=== PATIENT | male | born 1980 | race Caucasian/White ===

== ENCOUNTER 2020-12-10 09:48 | Outpatient (REF) | payer OTHER, SELFPAY ==
[2020-12-10 14:59] LABS: ALT 44 U/L (16-63); AST 22 U/L (15-37); Albumin 4.2 g/dL (3.4-5.0); Alkaline Phosphatase 66 U/L (46-116); Anion Gap 10.4 mmol/L (3-11); BUN 13 mg/dL (7-18); Bilirubin, Total 0.4 mg/dL (0.2-1.0); CO2 26.6 mmol/L (21.0-32.0); CREATININE 0.9 mg/dL (0.70-1.30); Calcium 9.5 mg/dL (8.5-10.1); Calculated LDL 140 mg/dL (<100); Chloride 103 mmol/L (98-107); Cholesterol 214 mg/dL (<200); Glucose 91 mg/dL (74-106); HDL Cholesterol 58 mg/dL (40-60); Potassium 4.7 mmol/L (3.5-5.1); Sodium 140 mmol/L (136-145); Total Protein 7.9 g/dL (6.4-8.2); Triglyceride 81 mg/dL (<150)
== END 2020-12-10 09:49 | disposition home or self-care (01) ==
LOC: NCHCN 09:48
PROVIDERS: PCP Physician Assistant; Referring Provider Physician Assistant; Visit Provider Physician Assistant
DX: Z00.00 Encounter for general adult medical examination without abnormal findings (principal)
CPT/HCPCS: 80053; 80061

== ENCOUNTER 2021-01-01 15:41 | Outpatient (CLI) | payer OTHER, SELFPAY ==
--- NOTE | 2021-01-01 16:15 | DI.RAD_ITS ---
Exam(s) XR ANKLE RT COMPLETE EXAM: XR ANKLE RT COMPLETE CLINICAL HISTORY: right ankle injury S99.911A TECHNIQUE: COMPARISON: No exams were available for comparison FINDINGS: Four views were obtained. The ankle mortise is well maintained. There is no evidence of acute fract ure or dislocation. IMPRESSION: RADIATION DOSE DELIVERED: Total DLP
--- NOTE | 2021-01-01 17:16 | DI.VRAD_ITS ---
PROCEDURE INFORMATION: Exam: XR Right Ankle Exam date and time: 01/01/2021 4:22 PM Age: 40 years old Clinical indication: Pain; Patient HX: Right ankle injury TECHNIQUE: Imaging protocol: XR Right ankle. Views: 3 or more views. COMPARISON: No relevant prior studies available. FINDINGS: Bones/joints: There is no evidence of acute fracture. There is no evidence of joint malalignment or dislocation. No joint effusion. Soft tissues: Mild lateral ankle soft tissue swelling. IMPRESSION: Mild lateral ankle soft tissue swelling without evidence of fracture, consistent with lateral ankle sprain. Recommend clinical correlation to point tenderness in this area. Dictated and Authenticated by: Martin Wood MD. Ordering:SCOOTER Shen MD
== END 2021-01-01 16:01 ==
PROVIDERS: PCP Physician Assistant; Visit Provider Physician Assistant
DX: S93.401A Sprain of unspecified ligament of right ankle, initial encounter
CPT/HCPCS: 73610

== ENCOUNTER 2022-01-07 09:48 | Outpatient (REF) | payer OTHER, SELFPAY ==
[2022-01-07 15:36] LABS: Anion Gap 10.2 mmol/L (3-11); BUN 16 mg/dL (7-18); CO2 25.8 mmol/L (21.0-32.0); CREATININE 0.9 mg/dL (0.70-1.30); Calcium 9.7 mg/dL (8.5-10.1); Calculated LDL 131 mg/dL (<100); Chloride 102 mmol/L (98-107); Cholesterol 214 mg/dL (<200); Estimated GFR 109.36 (mL/min/1.73m2); Glucose 97 mg/dL (74-106); HDL Cholesterol 74 mg/dL (40-60); Potassium 4.7 mmol/L (3.5-5.1); Sodium 138 mmol/L (136-145); Triglyceride 47 mg/dL (<150)
== END 2022-01-07 09:49 | disposition home or self-care (01) ==
LOC: NCHCN 09:48
PROVIDERS: PCP Physician Assistant; Visit Provider Physician Assistant
DX: Z00.00 Encounter for general adult medical examination without abnormal findings (principal)
CPT/HCPCS: 80048; 80061

== ENCOUNTER 2023-02-17 11:23 | Outpatient (REF) | payer OTHER, SELFPAY ==
[2023-02-17 15:53] LABS: Anion Gap 8.4 mmol/L (3-11); BUN 17 mg/dL (7-18); CO2 27.6 mmol/L (21.0-32.0); CREATININE 0.9 mg/dL (0.70-1.30); Calcium 9.6 mg/dL (8.5-10.1); Calculated LDL 125 mg/dL (<100); Chloride 101 mmol/L (98-107); Cholesterol 204 mg/dL (<200); Estimated GFR 108.68 (mL/min/1.73m2); Glucose 98 mg/dL (74-106); HDL Cholesterol 64 mg/dL (40-60); Potassium 4.5 mmol/L (3.5-5.1); Sodium 137 mmol/L (136-145); Triglyceride 76 mg/dL (<150)
== END 2023-02-17 11:24 | disposition home or self-care (01) ==
LOC: NCHCN 11:23
PROVIDERS: PCP Physician Assistant; Visit Provider Physician Assistant
DX: Z00.00 Encounter for general adult medical examination without abnormal findings (principal)
CPT/HCPCS: 80048; 80061

== ENCOUNTER 2024-02-23 09:40 | Outpatient (REF) | payer OTHER, SELFPAY ==
[2024-02-23 16:08] LABS: BUN 15 mg/dL (7-18); CO2 29.4 mmol/L (21.0-32.0); CREATININE 1.2 mg/dL (0.70-1.30); Calcium 9.7 mg/dL (8.5-10.1); Calculated LDL 111 mg/dL (<100); Cholesterol 195 mg/dL (<200); Estimated GFR 76.48 (mL/min/1.73m2); Glucose 90 mg/dL (74-106); HDL Cholesterol 66 mg/dL (40-60); Triglyceride 90 mg/dL (<150)
[2024-02-23 16:11] LABS: Anion Gap 6.6 mmol/L (3-11); Chloride 103 mmol/L (98-107); Sodium 139 mmol/L (136-145)
== END 2024-02-23 09:41 | disposition home or self-care (01) ==
LOC: NCHCN 09:40
PROVIDERS: PCP Physician Assistant; Visit Provider Physician Assistant
DX: Z00.00 Encounter for general adult medical examination without abnormal findings (principal)
CPT/HCPCS: 80048; 80061

== ENCOUNTER 2024-06-19 09:53 | Inpatient (IN) | payer OTHER, SELFPAY ==
[2024-06-19] VITALS (39 sets, daily range): BP systolic 128–202; BP diastolic 73–108; PULSE 91–114; RESP 12–24; TEMP 36.2–37; O2SAT 96–99
--- NOTE | 2024-06-19 09:45 | DI.CT_ITS ---
Exam(s) CT ABDOMEN PELVIS W EXAM: CT ABDOMEN PELVIS W CLINICAL HISTORY: Abdominal pain TECHNIQUE: Imaging Protocol: Axial computed tomography images with coronal and sagittal reformatted images were created and reviewed. CONTRAST MATERIAL: Intravenous: Omnipaque 350 Contrast volume:100 mL Oral: No COMPARISON: No exams were available for comparison FINDINGS: ABDOMEN: Lung Bases: No acute abnormality. Liver: Normal density. No measurable mass. Portal, Superior Mesenteric, and Splenic Veins: Unremarkable. Gallbladder and Biliary Tract: No radiodense calculus or dilation. Pancreas: Normal density, no abnormal calcifications or inflammatory process. Spleen: Normal. Adrenals: No masses seen. Kidneys: Normal size, contour and axis. No radiodense stones or obstructive uropathy. There are simpl e cysts seen on the right kidney. No follow-up is recommended. Abdominal Aorta: Abdominal portion non-dilated. Mild atherosclerotic calcification is present. Bowel: There is bowel wall thickening seen in the mid sigmoid colon. Stranding is seen in the surrou nding soft tissues. There do appear to be a few tiny diverticula present. There is no evidence of b owel obstruction. There is no other bowel wall thickening present. Appendix is unremarkable. Peritoneal Cavity: No ascites, collection or mesenteric inflammatory response. There is a tiny focus of air adjacent to the bowel wall thickening (series 12, image 184). This may represent a diverticu lum or a small focus of extraluminal air.No other evidence to suggest free air is seen in the abdomen or pelvis. Lymph Nodes: Within normal limits. Bones: Within normal limits for the patient's age. Soft Tissues: There are small bilateral fat containing inguinal hernias. PELVIS: Bladder: Symmetric distention, no gross wall thickening. Reproductive Organs: Unremarkable as visualized. Lymph Nodes: Within normal limits. Bones: Within normal limits for the patient's age. IMPRESSION: 1. Wall thickening seen in the mid sigmoid colon with stranding in the surrounding soft tissues. The re are diverticula seen in areas of the colon. This may represent acute diverticulitis. A follow-up examination to resolution is recommended to exclude underlying pathology. 2. Tiny focus of air adjacent to the infarct involved sigmoid colon which may represent a diverticulu m. Small focus of extraluminal air cannot be entirely excluded. No other evidence to suggest free a ir is seen in the abdomen or pelvis. RADIATION DOSE DELIVERED: 701.3mGy.cm Total DLP DATA REPOSITORY: All CT scans at this facility are submitted to the National Radiology Data Registry (NRDR) Dose Index Registry (DIR) with the [employer] (ACR). RADIATION OPTIMIZATION: All CT scans at this facility use at least one of these dose optimization te chniques: automated exposure control; mA and/or kV adjustment per patient size (includes targeted exa ms where dose is matched to clinical indication); or iterative reconstruction.
--- NOTE | 2024-06-19 09:54 | ED.GENADUL_ITS ---
Discharge Plan Disposition Patient Disposition: Admit to [facility] Discharge Details Clinical Impression: Colon wall thickening, Abdominal pain Admit Date/Time: 06/19/24 15:08 Admit Provider: Louis Tolbert Attending Provider: Louis Tolbert Primary Care Provider: Dallas Kate ED Provider: Martin Montes HPI General Date/Time Provider Initiated Documentation: 06/19/24 09:54 . HPI Narrative: MDM This is an overall well-appearing mildly tachycardic but normothermic 43-year-old male elevated BMI and lower abdominal pain concerning for possibility of appendicitis versus diverticulitis for which patient well undergo CT scan with IV contrast. No pain on proportion to suggest necrotizing soft tissue infection. In the absence of lateralizing pain and history of nephrolithiasis my suspicion is low for ureterolithiasis. Patient is not hypotensive nor an extremis to suggest ruptured AAA. No rash to abdomen to suggest zoster. No chest pain to suggest ACS so did not obtain ECG. No epigastric pain to suggest pancreatitis so I did not send a lipase. No dysuria nor frequency to suggest UTI so did not send urinalysis. No right upper quadrant tenderness to suggest acute cholecystitis so do not feel the patient requires right upper quadrant ultrasound. Patient is tachycardic so we will treat with 1 L of IV fluids. Has not been nauseous nor vomiting to suggest increased risk for esophageal rupture. In the absence of vomiting and past surgical history my suspicion for small bowel obstruction is low. 12:45 PM I was in touch with Dr. Tolbert from the hospitalist service who graciously agreed to accept the patient for hospitalization. I ordered blood cultures and lactate. Lactate was reassuring and not consistent with severe sepsis or septic shock. 4:[address] Munoz about the patient's hospitalization. HPI This is a 43-year-old male with history of hypertension hyperlipidemia arrived emergency department via private vehicle in the setting of abdominal pain. Patient reports that 2 days ago he woke up with abdominal pain. He says that he has not been nauseous nor vomiting. He feels constipated and has not had a bowel movement that has been significant in the past 3 days. He had a small bowel movement this morning after he had tried some suppositories and docusate. He has not been passing gas. He has no history of ureterolithiasis. He has not been nauseous nor vomiting. He has never had a colonoscopy and has had no past abdominal surgical history. His pain is primarily in the lower portion of his abdomen. He denies dysuria and frequency and has never had a urinary tract infection. Exam General: Well-appearing in no acute distress speaking in complete sentences. Head: Normocephalic, atraumatic. Eye: Extraocular eye movements intact. No conjunctival injection. No scleral icterus. Ear, nose, mouth, throat: Grossly normal inspection. Normal voice, handling secretions normally. Neck: Trachea midline. Cardiovascular: Well-perfused distal extremities. Rapid regular rate Respiratory: Nonlabored respiration. Clear lungs bilaterally. Gastrointestinal: Nondistended abdomen. Soft. Minimal bilateral lower quadrant tenderness. No rebound. No guarding. Musculoskeletal: No edema. Moving all 4 extremities spontaneously. Skin: Normal for age and race, grossly normal temperature and turgor. No acute rash. Neurologic: Alert and appropriate, no apparent acute deficits. Psychiatric: Mood and manner are appropriate. Grooming and personal hygiene are appropriate. Related Data Home Medications ?Medication ?Instructions ?Recorded ?Confirmed albuterol sulfate 90 mcg/actuation 2 inh inhalation 02/10/15 12/21/23 aerosol inhaler (Proventil HFA) atorvastatin 20 mg tablet 20 mg PO DAILY 01/01/21 06/19/24 lisinopril 20 mg tablet 20 mg PO DAILY 07/24/23 06/19/24 Allergies Allergy/AdvReac Type Severity Reaction Status Date / Time doxycycline AdvReac Severe diarrhea Verified 06/19/24 09:10 horses Allergy Asthma Uncoded 06/19/24 09:10 Medical Decision Making Quality:SDOH Health Related Social Needs: No Data to Display PFSH All Active Problems (Updated 06/19/24 @ 15:11 by MICHAEL AGUDELO) HLD (hyperlipidemia) (Acute) HTN (hypertension) (Chronic) Acute diverticulitis (Acute) Sepsis (Acute) Abdominal pain (Acute) Colon wall thickening (Acute) Sebaceous cyst (Acute) Social History Smoking/Tobacco Use Status: Never Smoking risk assessment performed?: Yes Drug use: Never Substance use type: does not use
[2024-06-19] MEDS: Normal Saline - Diluent 50 ML VIAL IJ (10:28)
[2024-06-19] MEDS: Omnipaque 350 MG/ML 100 ML BTL IJ (10:30)
[2024-06-19] MEDS: Normal Saline 1,000 ML 1000 ML IV (10:45)
[2024-06-19 10:47] LABS: Abs Immature Grans 0.06 10^3/uL (0.0-0.06); Absolute Basophil Count 0.04 10^3/uL (0.0-0.2); Absolute Lymphocyte Count 1.36 10^3/uL (1.2-3.4); Basophils % 0.3 %; Eosinophils % 0.9 %; HCT 41.7 % (40.0-50.0); HGB 14.4 g/dL (13.5-17.5); Immature Grans % 0.4 %; Lymphocytes % 9.1 %; MCH 31.5 pg (27.0-33.0); MCHC 34.5 % (32.0-36.0); MCV 91 fL (80-95); MPV 9.6 fL (8.0-11.0); Monocytes % 7.4 %; Neutrophils % 81.9 %; Platelet Count 371 10^3/uL (130-400); RBC 4.57 10^6/uL (4.36-5.78); RDW 11.6 % (11.8-14.1); WBC 14.93 10^3/uL (4.4-10.8)
[2024-06-19 10:48] LABS: Absolute Eosinophil Count 0.13 10^3/uL (0.0-0.7); Absolute Neutrophil Count 12.23 10^3/uL (1.2-6.7)
[2024-06-19] MEDS: fentaNYL 100 MCG/2 ML VIAL 75 MCG IVP (11:03)
[2024-06-19 11:08] LABS: ALT 36 U/L (16-63); AST 19 U/L (15-37); Albumin 3.8 g/dL (3.4-5.0); Alkaline Phosphatase 86 U/L (46-116); Anion Gap 8.4 mmol/L (3-11); BUN 10 mg/dL (7-18); Bilirubin, Total 0.7 mg/dL (0.2-1.0); CO2 28.6 mmol/L (21.0-32.0); Calcium 9.7 mg/dL (8.5-10.1); Chloride 99 mmol/L (98-107); Estimated GFR 95.18 (mL/min/1.73m2); Glucose 113 mg/dL (74-106); Potassium 4.4 mmol/L (3.5-5.1); Sodium 136 mmol/L (136-145); Total Protein 8.2 g/dL (6.4-8.2)
[2024-06-19] MEDS: MORPHine IR 15 MG TAB PO ×2 (12:05→19:48)
[2024-06-19] MEDS: Ketorolac 15 MG/ML VIAL IVP (12:05)
--- NOTE | 2024-06-19 12:45 | HPE_ITS ---
Date of service: 06/19/24 Time of Service: 12:45 Assessment and Plan Assessment and plan (1) Sepsis: Status: Acute Assessment and plan: -Patient met criteria for sepsis on admission with initial heart rate of 114 bpm, white blood cell count of 14.9, and acute diverticulitis as noted on CT abdomen pelvis -Patient was started on Zosyn in the emergency department, will continue -Patient is able to tolerate p.o. intake he will be transitioned to p.o. Cipro and Flagyl -Lactate was ordered in the emergency department, currently pending -Patient's status post 1 L normal saline (2) Acute diverticulitis: Status: Acute Assessment and plan: - Source of infection as noted above (3) HTN (hypertension): Status: Chronic Assessment and plan: - Continue home lisinopril 20 mg daily (4) HLD (hyperlipidemia): Status: Acute Assessment and plan: - Continue home atorvastatin 20 mg daily History of Present Illness History of Present Illness Chief Complaint: abdominal pain Narrative: 43-year-old male with a past medical history of hypertension, hyperlipidemia presented to the emergency department complaints of abdominal pain. Patient states that 2 days ago he woke up with abdominal pain has been persistent since that time though he denies any nausea or vomiting. He also states that he felt constipated has not had a bowel movement over the last 3 days we did have one earlier this morning after suppositories. Patient is around colonoscopy and does not have any history of abdominal surgeries, and he denies any fevers, lightheadedness, dizziness, chest pain or shortness of breath. In the emergency department the patient was noted as having heart rate 114, with otherwise normal vital signs. His abdominal exam was noted as being diffusely tender which resulted and CT abdomen pelvis that showed wall thickening in the mid sigmoid colon with stranding of the surrounding soft tissue and may represent acute diverticulitis. This finding was also in combination with elevated white blood cell count of 14.9. While in the emergency department patient was experiencing pain and and was given fentanyl and ultimately 50 mg of p.o. morphine that did not improve his abdominal discomfort. He was also given IV Zosyn. At which time emergency room physician paged hospitalist for admission for patient with sepsis secondary to acute diverticulitis Review of Systems All systems reviewed & are unremarkable except as noted in HPI and below PFSH All Active Problems (Updated 06/19/24 @ 15:11 by MICHAEL AGUDELO) HLD (hyperlipidemia) (Acute) HTN (hypertension) (Chronic) Acute diverticulitis (Acute) Sepsis (Acute) Abdominal pain (Acute) Colon wall thickening (Acute) Sebaceous cyst (Acute) Social History Smoking/Tobacco Use Status: Never Smoking risk assessment performed?: Yes Drug use: Never Substance use type: does not use Meds Allergies and Home Medications Allergies Allergy/AdvReac Type Severity Reaction Status Date / Time doxycycline AdvReac Severe diarrhea Verified 06/19/24 09:10 horses Allergy Asthma Uncoded 06/19/24 09:10 Home Medications ?Medication ?Instructions ?Recorded ?Confirmed ?Type albuterol sulfate 90 mcg/actuation 2 inh inhalation 02/10/15 12/21/23 History aerosol inhaler (Proventil HFA) atorvastatin 20 mg tablet 20 mg PO DAILY 01/01/21 06/19/24 History lisinopril 20 mg tablet 20 mg PO DAILY 07/24/23 06/19/24 History Exam Narrative Exam Narrative: Well-appearing gentleman laying in bed in no acute distress, ANO x 4, heart regular rhythm, lungs clear to auscultation bilaterally, abdomen soft, with mild bilateral lower quadrant tenderness to deep palpation without guarding or rebounding Results Labs 06/19/24 10:40 06/19/24 10:40 Labs: Laboratory Results - last 24 hr 06/19/24 10:40 WBC 14.93 H RBC 4.57 Hgb 14.4 Hct 41.7 MCV 91 MCH 31.5 MCHC 34.5 RDW 11.6 L Plt Count 371 MPV 9.6 Immature Gran % 0.4 Neutrophils % 81.9 Lymphocytes % 9.1 Monocytes % 7.4 Eosinophils % 0.9 Basophils % 0.3 Nucleated RBC % 0.0 Absolute Neutrophils 12.23 H Absolute Lymphocytes 1.36 Absolute Monocytes 1.10 H Absolute Eosinophils 0.13 Absolute Basophils 0.04 Sodium 136 Potassium 4.4 Chloride 99 Carbon Dioxide 28.6 Anion Gap 8.4 BUN 10 Creatinine 1.0 Est GFR (CKD-EPI 2020) 95.18 Glucose 113 H Calcium 9.7 Total Bilirubin 0.7 AST 19 ALT 36 Alkaline Phosphatase 86 Total Protein 8.2 Albumin 3.8 Last Vital Signs Temp 98.5 F 06/19/24 11:30 Pulse 99 H 06/19/24 12:20 Resp 14 06/19/24 12:20 BP 158/96 H 06/19/24 11:01 Pulse Ox 98 06/19/24 12:20 Time Spent Time spent with Patient: >75 minutes Time was spent: preparing to see the patient(eg.review tests), obtaining and/or reviewing separately otained hiistory, ordering medications,tests, procedures, referring, communicating with other health vision care associate, indepentently interpreting results, counseling the patient and care coordination
[2024-06-19 13:44] LABS: Lactate 1.3 mmol/L (<or=2.0)
--- NOTE | 2024-06-19 15:05 | W.SURGCON ---
Date of service: 06/19/24 Time of Service: 15:05 Assessment and Plan Assessment and plan (1) Acute diverticulitis: Status: Acute Assessment and plan: 43-year-old man with sigmoid inflammation, most?likely secondary to acute diverticulitis. A colon malignancy could present this way and does need to be ruled out in the short-term. It is highly recommended that 6 to 8 weeks after this episode he undergoes colonoscopy to evaluate this region. The differential diagnosis does include other things such as IBD and appendagitis though these are less likely. There are not many other possible etiologies. Recommendation: Laxatives Colonoscopy 6 to 8 weeks after discharge - he should follow-up with us in the office to schedule. History of Present Illness Narrative: 43-year-old man has never had a colonoscopy before. Presents with acute abdominal pain and a segment of sigmoid inflammation, likely related to sigmoid diverticulitis. He is being admitted to the hospitalist service for medical management. At the bedside he endorses cramping abdominal discomfort for about 2 to 3 days. He thinks maybe he has had it a couple of times before but is not sure. He feels like he just needs to go to the bathroom and it would get better. He has not been able to have a bowel movement for the same timeframe. PFSH All Active Problems (Updated 06/19/24 @ 15:11 by MICHAEL AGUDELO) HLD (hyperlipidemia) (Acute) HTN (hypertension) (Chronic) Acute diverticulitis (Acute) Sepsis (Acute) Abdominal pain (Acute) Colon wall thickening (Acute) Sebaceous cyst (Acute) Social History Smoking/Tobacco Use Status: Never Smoking risk assessment performed?: Yes Drug use: Never Substance use type: does not use Housing: house Exam Narrative Exam Narrative: Gen: Non-toxic, comfortable and interactive Neuro: Alert and oriented x3 Psych: Good mood and affect. Good insight and understanding into condition. Chest: Non-labored breathing, no wheezing, no visible shortness of breath. Heart: Regular Abdomen: Soft, nondistended, focal left lower quadrant discomfort to palpation. No peritoneal signs. Results Last Vital Signs Temp 98.5 F 06/19/24 11:30 Pulse 95 H 06/19/24 14:40 Resp 19 06/19/24 14:40 BP 135/81 06/19/24 14:40 Pulse Ox 98 06/19/24 14:40 Labs 06/20/24 05:43 06/20/24 05:43 Labs: Laboratory Results - last 24 hr 06/19/24 06/19/24 10:40 13:40 WBC 14.93 H RBC 4.57 Hgb 14.4 Hct 41.7 MCV 91 MCH 31.5 MCHC 34.5 RDW 11.6 L Plt Count 371 MPV 9.6 Immature Gran % 0.4 Neutrophils % 81.9 Lymphocytes % 9.1 Monocytes % 7.4 Eosinophils % 0.9 Basophils % 0.3 Nucleated RBC % 0.0 Absolute Neutrophils 12.23 H Absolute Lymphocytes 1.36 Absolute Monocytes 1.10 H Absolute Eosinophils 0.13 Absolute Basophils 0.04 VBG Lactate 1.3 Sodium 136 Potassium 4.4 Chloride 99 Carbon Dioxide 28.6 Anion Gap 8.4 BUN 10 Creatinine 1.0 Est GFR (CKD-EPI 2020) 95.18 Glucose 113 H Calcium 9.7 Total Bilirubin 0.7 AST 19 ALT 36 Alkaline Phosphatase 86 Total Protein 8.2 Albumin 3.8
--- NOTE | 2024-06-19 15:30 | W.PC.ACHO ---
Registration Status: Primary Language: Preferred Language: ED Information & Data Chief Complaint Abd Prob 06/19/24 12:36 Chief Complaint Abd Prob 06/19/24 10:06 Triage Note Lower quad to mid ABD pain 06/19/24 10:06 started late Wednesday firm and distended, denies nausea has chills, has increased water intake and took Rectal supp with no result, decreased urine OP Most Recent Vital Signs Temperature 36.9 C 06/19/24 11:30 Temperature Source Oral 06/19/24 11:30 Pulse 95 H 06/19/24 14:40 Pulse 95 H 06/19/24 14:30 Respiratory Rate 19 06/19/24 14:40 Blood Pressure 135/81 06/19/24 14:40 Blood Pressure Mean 98 06/19/24 14:16 Blood Pressure Position Sitting 06/19/24 12:38 Pulse Oximetry 98 06/19/24 14:40 Oxygen Delivery Method Room Air 06/19/24 12:38 Oxygen Flow Rate 0 06/19/24 10:06 Pain Level 8 06/19/24 12:05 Allergies doxycycline Adverse Reaction (Severe, Verified 06/19/24 09:10) diarrhea horses Allergy (Uncoded 06/19/24 09:10) Asthma asthma goes crazy IV IV Catheter Type [Left Saline Lock Antecubital] IV Catheter Gauge [Left 18 Antecubital] Diet Orders Category Date Time Status Nothing Per Oral [DIET] Nutrition 06/19/24 Dinner Active Diagnostics 06/19/24 06/19/24 Range/Units 13:40 10:40 WBC 14.93 H (4.4-10.8) 10^3/uL RBC 4.57 (4.36-5.78) 10^6/uL Hgb 14.4 (13.5-17.5) g/dL Hct 41.7 (40.0-50.0) % MCV 91 (80-95) fL MCH 31.5 (27.0-33.0) pg MCHC 34.5 (32.0-36.0) % RDW 11.6 L (11.8-14.1) % Plt Count 371 (130-400) 10^3/uL MPV 9.6 (8.0-11.0) fL Immature Gran % 0.4 % Neutrophils % 81.9 % Lymphocytes % 9.1 % Monocytes % 7.4 % Eosinophils % 0.9 % Basophils % 0.3 % Nucleated RBC % 0.0 (0.0-0.3) % Absolute Neutrophils 12.23 H (1.2-6.7) 10^3/uL Absolute Lymphocytes 1.36 (1.2-3.4) 10^3/uL Absolute Monocytes 1.10 H (0.1-0.8) 10^3/uL Absolute Eosinophils 0.13 (0.0-0.7) 10^3/uL Absolute Basophils 0.04 (0.0-0.2) 10^3/uL VBG Lactate 1.3 (<or=2.0) mmol/L Sodium 136 (136-145) mmol/L Potassium 4.4 (3.5-5.1) mmol/L Chloride 99 (98-107) mmol/L Carbon Dioxide 28.6 (21.0-32.0) mmol/L Anion Gap 8.4 (3-11) mmol/L BUN 10 (7-18) mg/dL Creatinine 1.0 (0.70-1.30) mg/dL Est GFR (CKD-EPI 2020) 95.18 (mL/min/1.73m2) Glucose 113 H (74-106) mg/dL Calcium 9.7 (8.5-10.1) mg/dL Total Bilirubin 0.7 (0.2-1.0) mg/dL AST 19 (15-37) U/L ALT 36 (16-63) U/L Alkaline Phosphatase 86 (46-116) U/L Total Protein 8.2 (6.4-8.2) g/dL Albumin 3.8 (3.4-5.0) g/dL 06/19/24 13:40 Blood Culture - Pending Blood 06/19/24 13:05 Blood Culture - Pending Blood Intake and Output - 24 Hour Total 06/19/24 09:53 thru 06/19/24 10:06 Weight 113.398 kg Falls Risk Assessment History of Falls No History 06/19/24 14:39 Contributing Factors No Factors 06/19/24 14:39 Ambulatory Aids Independent 06/19/24 14:39 Tubes/Lines None 06/19/24 14:39 Gait Evaluation No gait disturbance 06/19/24 14:39 Cognition No cognitive impairment 03/31/25 14:39 Fall Total Score 0 06/19/24 14:39 Level of Risk Standard/Low Risk 06/19/24 14:39 Problems (Last Reviewed 07/28/23 @ 13:23 by MYRA Alexandre) HLD (hyperlipidemia) (Acute) HTN (hypertension) (Chronic) Acute diverticulitis (Acute) Sepsis (Acute) v v v v v v v v v Sending and/or Receiving Nurses: Please use comment section below to note any information pertinent to the patient hand-off not included above. Information / Comments: Pt arrived to floor a/o x 4. He is independent with ambulation. He is here foir treatment of abdominal pain and sepsis. Pt will have a surgical consult while on floor. Per ED report pt has been hypertensive since arriving to hospital. Possibly from pain level which has been high. Pt had fentanyl, morphine and keterolac which has seemed to decrease the pain. Pt was settled in by Coleen pham nurse. Report received from: [facility]
[2024-06-19] MEDS: Normal Saline 1,000 ML 125 ML IV (19:40)
[2024-06-19] MEDS: Normal Saline Flush 10 ML SYR IVP (19:40)
[2024-06-19] MEDS: Docusate Sodium 100 MG CAP PO (19:48)
[2024-06-19] MEDS: Polyethylene Glycol 3350 17 GM PACKET PO (19:51)
[2024-06-19] MEDS: Bisacodyl 10 MG SUPP PR (22:16)
[2024-06-20 02:10] VITALS: BP 134/77; PULSE 95; RESP 18; TEMP 36.9; O2SAT 96
[2024-06-20] MEDS: Normal Saline 1,000 ML 125 ML IV (05:12)
[2024-06-20 06:44] LABS: HCT 36.9 % (40.0-50.0); HGB 12.5 g/dL (13.5-17.5); MCH 31.3 pg (27.0-33.0); MCHC 33.9 % (32.0-36.0); MCV 93 fL (80-95); MPV 10.2 fL (8.0-11.0); Platelet Count 329 10^3/uL (130-400); RBC 3.99 10^6/uL (4.36-5.78); RDW 11.6 % (11.8-14.1); RDW-SD 39.5 fL; WBC 11.92 10^3/uL (4.4-10.8)
[2024-06-20 06:56] LABS: Anion Gap 9.1 mmol/L (3-11); BUN 9 mg/dL (7-18); CO2 28.9 mmol/L (21.0-32.0); Calcium 9.1 mg/dL (8.5-10.1); Chloride 101 mmol/L (98-107); Estimated GFR 95.18 (mL/min/1.73m2); Glucose 101 mg/dL (74-106); Magnesium 2.4 mg/dL; Potassium 4.2 mmol/L (3.5-5.1); Sodium 139 mmol/L (136-145)
[2024-06-20 08:01] VITALS: BP 137/87; PULSE 91; RESP 16; TEMP 36.9; O2SAT 98
[2024-06-20] MEDS: Lisinopril 20 MG TAB PO (08:18)
[2024-06-20] MEDS: Normal Saline Flush 10 ML SYR IVP (08:19)
[2024-06-20] MEDS: Atorvastatin 20 MG TAB PO (08:19)
--- NOTE | 2024-06-20 08:34 | PDOC.CMIN ---
Date of service: 06/20/24 Time of Service: 08:34 Care Management Initial Assmt Initial Assessment Reason for Hospitalization: sepsis Functional Status/Living Situation Town of Residence: [place] Resides with: Spouse (Renee) Employment Status: Employed ([employer]) Instrumental Activities of Daily Living (ADLs): Independent Medications Medication Management: No Issues/Barriers identified Physical Functioning/Mobility Assistive Device: none Advance Directives Advance Directives: Do you have an Advance Directive: N 06/19/24 09:56 AD On File at [facility]: N 02/10/15 15:06 Date Asked 06/19/24 06/19/24 09:56 AD Date Reviewed COLST On File at [facility] COLST Date Scanned Code Status Resuscitation Status Full Code Portal Pt does not currently have a portal and education provided: Yes Insurance Coverage/Financial Issues Insurance: P Care Team Visit Care Team Role Provider Type Dallas Kate Primary Care Provider NON-[facility] STAFF PHYSICIAN Martin Montes MD Emergency Provider [facility] STAFF PHYSICIAN Louis Tolbert MD Admit Provider [facility] STAFF PHYSICIAN Attending Provider Discharge Potential Discharge Needs: PCP F/U Appt and Surgical F/U Appt Anticipated Barriers to Discharge: None Identified Patient/Family Education Needs: Review discharge instructions, discuss Ask Me Three Transportation: Private vehicle Plan: Anticipate Fareed will be discharged home with no new services when medically cleared. He will follow up with his community providers and plan of care and transport with family. CM will follow and continue to assess for discharge needs. Social Determinants of Health Screening Social Determinants of Health last assessed: 06/20/24 Will the Patient Participate in the Screening?: Yes Do you worry about having a steady place to live?: no Problems where you live: no known problems In the past 12 months, have you had to go without electric, gas, oil or water in your home?: no Have you or anyone in your house had to go without enough food to eat?: no Has lack of transportation kept you from medical appointments or from doing things needed for daily living?: no Has anyone in your life made you feel unsafe or unsupported?: no How hard is it for you to pay for the very basics like food, housing, medical care, and heating? Would you say it is:: Not hard at all Do you want help finding or keeping work or a job?: I do not need or want help If for any reason you need help with day-to-day activities such as bathing, preparing meals, shopping, managing finances, etc., do you get the help you need?: I don?t need any help How often do you feel lonely or isolated from those around you?: Never Do you speak a language other than Bulgarian at home?: No Does the patient want assistance with any of the above?: No PFSH All Active Problems (Updated 06/19/24 @ 15:11 by MICHAEL GAUDELO) HLD (hyperlipidemia) (Acute) HTN (hypertension) (Chronic) Acute diverticulitis (Acute) Sepsis (Acute) Abdominal pain (Acute) Colon wall thickening (Acute) Sebaceous cyst (Acute) Social History Smoking/Tobacco Use Status: Never Smoking risk assessment performed?: Yes Drug use: Never Substance use type: does not use Housing: house
--- NOTE | 2024-06-20 09:24 | DSE_ITS ---
Date of service: 06/20/24 Time of Service: 09:24 DS: Diagnosis Discharge Diagnosis (1) Acute diverticulitis: Status: Acute Discharge Plan Disposition Patient Disposition: Home Condition: Good Discharge Details Reason For Visit: sepsis, diverticulitis Admit Date/Time: 06/19/24 15:08 Admit Provider: Louis Tolbert Attending Provider: Louis Tolbert Primary Care Provider: [facility] Hospital Course Hospital Course: Patient initially presented with abdominal pain that was thought to be secondary to acute diverticulitis and constipation. Patient was on Zosyn and was given aggressive bowel regimen and had significant improvement of his symptoms especially after having large bowel movement on the morning of 06/20/2024. Given the patient had significant improvement of his symptoms and had bowel movement it was determined that he was stable for discharge and will be sent home with an additional 5 days of ciprofloxacin and Flagyl. Home Meds and New Rx's Prescriptions: New ciprofloxacin HCl [Cipro] 500 mg tablet 500 mg PO BID Qty: 10 0RF metronidazole 500 mg tablet 500 mg PO BID Qty: 10 0RF Continued atorvastatin 20 mg tablet 20 mg PO DAILY lisinopril 20 mg tablet 20 mg PO DAILY albuterol sulfate [Proventil HFA] 1 PUFF HFA aerosol inhaler 2 inh inhalation fluticasone propion-salmeterol 100-50 mcg/dose blister with device 1 inh INHALATION BID Patient Comments: INHALE ONE PUFF BY MOUTH TWICE A DAY Discharge Instructions Activity:: Activity as Tolerated Equipment/Supplies:: No Equipment Needed Diet:: As Tolerated Discharge Orders Discharge Orders: Discharge Order (Routine); Ordered 06/20/24 Ordered By: Louis Tolbert DS: Summary Time Spent with Patient providing and/or coordinating discharge services: Greater than 30 minutes Status at Discharge Functional status at discharge: independent ambulation Overall status at discharge: patient is back to baseline Mental Status: mental status grossly normal Speech and Movement: speech and movement normal Mood: congruent mood Affect: normal affect Quality:SDOH Health Related Social Needs: No Data to Display Exam Narrative Exam Narrative: Well-appearing gentleman laying in bed in no acute distress, ANO x 4, heart regular rhythm, lungs clear to auscultation bilaterally, abdomen soft, with minimal bilateral lower quadrant tenderness to deep palpation without guarding or rebounding Psych Mental Status: mental status grossly normal Speech and Movement: speech and movement normal Mood: congruent mood Affect: normal affect DS: Data Vitals/I&O Vitals and I&O: Vital Signs Temperature 98.4 F 06/20/24 08:01 Temperature Source Temporal Artery Scan 06/20/24 08:01 Pulse 91 H 06/20/24 08:01 Pulse Rhythm Regular 06/19/24 17:30 Pulse 95 H 06/19/24 14:30 Respiratory Rate 16 06/20/24 08:01 Respiratory Effort Normal 06/19/24 17:30 Respiratory Depth Normal 06/19/24 17:30 Respiratory Pattern Normal 06/19/24 17:30 Blood Pressure 137/87 06/20/24 08:01 Blood Pressure Mean 98 06/19/24 14:16 Blood Pressure Position Sitting 06/19/24 12:38 Pulse Oximetry 98 06/20/24 08:01 Oxygen Delivery Method Room Air 06/20/24 08:01 Oxygen Flow Rate 0 06/20/24 08:01 Pain Level 0 06/20/24 08:01 Comment pt states pain he has is tolerable. 06/20/24 08:01 Intake & Output 06/19/24 06/20/24 06/20/24 17:59 05:59 17:59 Intake Total 1050 / 1050 1100 / 2150 50 / 50 Output Total 200 / 200 Balance 850 / 850 1100 / 1950 50 / 50 Weight 250 lb Intake: IV 1050 / 1050 1100 / 2150 50 / 50 Output: Urine 200 / 200 Other: Urine Color Yellow Yellow Urine Appearance Clear Clear Urine Odor Normal Stool Size Small Moderate Stool Characteristics Formed Soft Data Completed and Pending Labs on day of discharge: Labs from last 24 hours 06/20/24 06/19/24 06/19/24 05:43 13:40 10:40 WBC 11.92 H 14.93 H RBC 3.99 L 4.57 Hgb 12.5 L 14.4 Hct 36.9 L 41.7 MCV 93 91 MCH 31.3 31.5 MCHC 33.9 34.5 RDW 11.6 L 11.6 L Plt Count 329 371 MPV 10.2 9.6 Immature Gran % 0.4 Neutrophils % 81.9 Lymphocytes % 9.1 Monocytes % 7.4 Eosinophils % 0.9 Basophils % 0.3 Nucleated RBC % 0.0 Absolute Neutrophils 12.23 H Absolute Lymphocytes 1.36 Absolute Monocytes 1.10 H Absolute Eosinophils 0.13 Absolute Basophils 0.04 VBG Lactate 1.3 Sodium 139 136 Potassium 4.2 4.4 Chloride 101 99 Carbon Dioxide 28.9 28.6 Anion Gap 9.1 8.4 BUN 9 10 Creatinine 1.0 1.0 Est GFR (CKD-EPI 2020) 95.18 95.18 Glucose 101 113 H Calcium 9.1 9.7 Magnesium 2.4 Total Bilirubin 0.7 AST 19 ALT 36 Alkaline Phosphatase 86 Total Protein 8.2 Albumin 3.8 06/19/24 13:40 Blood Blood Culture - Pending 06/19/24 13:05 Blood Blood Culture - Pending Preliminary micro results at discharge 06/19/24 13:40 Blood Culture - Pending Blood 06/19/24 13:05 Blood Culture - Pending Blood PFSH All Active Problems (Updated 06/19/24 @ 15:11 by MICHAEL AGUDELO) HLD (hyperlipidemia) (Acute) HTN (hypertension) (Chronic) Acute diverticulitis (Acute) Sepsis (Acute) Abdominal pain (Acute) Colon wall thickening (Acute) Sebaceous cyst (Acute) Social History Smoking/Tobacco Use Status: Never Smoking risk assessment performed?: Yes Drug use: Never Substance use type: does not use Housing: house Time Spent with Patient Time Spent with Patient: <45 minutes Time was spent: preparing to see the patient(eg.review tests), obtaining and/or reviewing separately otained hiistory, ordering medications,tests, procedures, referring, communicating with other health clinical care leader, indepentently interpreting results, counseling the patient and care coordination
--- NOTE | 2024-06-20 10:53 | CMPROGNOTE_ITS ---
Date of service: 06/20/24 Time of Service: 10:53 Care Management Progress Note Progress Note Text Progress Note Text: Fareed was admitted on 06/19/24 with diverticulitis. Antibiotic therapy and symptom management were initiated and he improved considerably overnight. He will be discharged home today with no new services. Fareed will follow up with his community providers and plan of care and transport with family. Social Determinants of Health Screening Social Determinants of Health last assessed: 06/20/24 Will the Patient Participate in the Screening?: Yes Do you worry about having a steady place to live?: no Problems where you live: no known problems In the past 12 months, have you had to go without electric, gas, oil or water in your home?: no Have you or anyone in your house had to go without enough food to eat?: no Has lack of transportation kept you from medical appointments or from doing things needed for daily living?: no Has anyone in your life made you feel unsafe or unsupported?: no How hard is it for you to pay for the very basics like food, housing, medical care, and heating? Would you say it is:: Not hard at all Do you want help finding or keeping work or a job?: I do not need or want help If for any reason you need help with day-to-day activities such as bathing, preparing meals, shopping, managing finances, etc., do you get the help you need?: I don?t need any help How often do you feel lonely or isolated from those around you?: Never Do you speak a language other than Bulgarian at home?: No Does the patient want assistance with any of the above?: No
== END 2024-06-20 10:17 | disposition home or self-care (01) | DRG 872 ==
LOC: ER 12:47 → MS 15:11
PROVIDERS: Admitting Provider Family Medicine; Emergency Provider Emergency Medicine; PCP Physician Assistant; Responsible Provider Family Medicine; Visit Provider Family Medicine
DX: A41.9 Sepsis, unspecified organism (principal); K57.32 Diverticulitis of large intestine without perforation or abscess without bleeding; I10 Essential (primary) hypertension; E78.5 Hyperlipidemia, unspecified; R00.0 Tachycardia, unspecified; K59.00 Constipation, unspecified
CPT/HCPCS: 00123; 36415; 80048; 80053; 85027; 87040; 96361; 96365; 96375; 99285; 74177; 83605; 83735; 85025; 99223; 99239; J1885; J2543; J3010; J3490